=== PATIENT | male | born 1935 | race Caucasian/White ===

== ENCOUNTER 2021-10-07 16:59 | Emergency (ER) | payer MEDICARE ==
[2021-10-07 17:14] VITALS: RESP 18; TEMP 98.8
--- NOTE | 2021-10-07 18:22 | ED ---
General Adult HPI - General Chief complaint: Fall Stated complaint: Fall Time Seen by Provider: 10/07/21 18:05 Source: patient, EMS, RN notes reviewed Mode of arrival: EMS Limitations: altered mental status - History of Present Illness Initial comments: 85-year-old male presents to the emergency department for evaluation status post fall. Patient lives at an extended care facility and was found laying on the ground face first next to his bed. He has no complaints of pain or discomfort. Is unable to recall any events surrounding the fall. His daughter is present at bedside and states the patient is currently at his baseline. Denies any recent sick contacts. No injuries were identified or complained of. Denies fever, chills, headache, blurry vision, neck pain, back pain, chest pain, shortness of breath, difficulty breathing, abdominal pain, nausea, vomiting, diarrhea, dysuria, or hematuria. No gait change or mental status changes according to family. - Related Data Allergies Allergy/AdvReac Type Severity Reaction Status Date / Time shellfish derived [Shellfish] Allergy Unknown Verified 10/07/21 17:14 Review of Systems ROS Statement: Those systems with pertinent positive or pertinent negative responses have been documented in the HPI. ROS Other: All systems not noted in ROS Statement are negative. Past Medical History Past Medical History: Unable to Obtain History of Any Multi-Drug Resistant Organisms: Unobtainable Past Surgical History: Unable to Obtain Past Psychological History: Unable to Obtain Smoking Status: Unknown if ever smoked Past Alcohol Use History: Unable to Obtain Past Drug Use History: Unable to Obtain General Exam Limitations: altered mental status General appearance: alert, in no apparent distress Head exam: Present: atraumatic, normocephalic, normal inspection Eye exam: Present: normal appearance, PERRL, EOMI. Absent: scleral icterus, conjunctival injection, periorbital swelling, periorbital tenderness ENT exam: Present: normal exam, normal oropharynx, mucous membranes moist, TM's normal bilaterally Neck exam: Present: normal inspection, full ROM. Absent: tenderness, meningismus, lymphadenopathy Respiratory exam: Present: normal lung sounds bilaterally. Absent: respiratory distress, wheezes, rales, rhonchi, stridor, chest wall tenderness Cardiovascular Exam: Present: regular rate, normal rhythm, normal heart sounds. Absent: systolic murmur, diastolic murmur, rubs, gallop, clicks GI/Abdominal exam: Present: soft, normal bowel sounds. Absent: distended, tenderness, guarding, rebound, rigid Back exam: Present: normal inspection, full ROM. Absent: CVA tenderness (R), CVA tenderness (L), paraspinal tenderness, vertebral tenderness Neurological exam: Present: alert, other (Oriented to person only which is normal per daughter present at bedside; has some difficulty following commands which is baseline; lacks organization to setence structure and conversation- also normal per daughter.) Psychiatric exam: Present: normal affect, normal mood Skin exam: Present: warm, dry, intact, normal color Course Vital Signs 10/07/21 10/07/21 17:06 18:44 Temperature 98.8 F Pulse Rate 66 67 Respiratory 18 18 Rate Blood Pressure 120/84 113/65 O2 Sat by Pulse 97 97 Oximetry - Reevaluation(s) Reevaluation #1: 10/07/21 18:27 Patient's care discussed with my attending, Dr. Hwang, who is also present at bedside. Patient's daughter again expresses the desire to do no further testing as patient is at his baseline. States the he is signed up for hospice next week and [facility] is [facility]. Medical Decision Making - Medical Decision Making 85-year-old male with a past medical history of dementia presents to the emergency department following a presumed fall. Patient was found in his residence at [facility] laying face down next to the bed. Patient does not take any blood thinning medications. Upon exam, patient is awake and alert; he is shuffling in the room with his daughter present at the bedside. Patient demonstrates no evidence of injury, pain, or trauma. Physical exam findings are negative. Neurological status is baseline for patient as he is normally confused with difficulty following commands. Patient's daughter states he will be made a hospice patient on Sunday. Discussed diagnostic imaging, however patient's daughter feels this is unnecessary as patient's mental status is unchanged and he appears uninjured. This patient's care was discussed with my attending, Dr. Hwang, who is present at bedside to talk with patient and daughter. As a result of shared decision making, patient was discharged home with his daughter who will see him back to [facility]. Follow-up care was discussed in including return parameters. Patient's daughter verbalizes understanding and agrees with this plan. Disposition Clinical Impression: Fall, Chronic confusional state Disposition: HOME SELF-CARE Condition: Stable Instructions (If sedation given, give patient instructions): Dementia (ED), F all Prevention for Older Adults (ED) Additional Instructions: Continue with plan of care as currently engaged in. Follow-up with the PCP for a recheck if needed. Do not hesitate to return to the emergency department with any new, worsening, or concerning symptoms. Is patient prescribed a controlled substance at d/c from ED?: No Referrals: Nonstaff,Physician [Primary Care Provider] - 1-2 days Time of Disposition: 18:30
[2021-10-07 18:44] VITALS: BP 113/65; PULSE 67
== END 2021-10-07 18:52 | disposition home or self-care (01) ==
LOC: EC 16:59
DX: Z04.3 Encounter for examination and observation following other accident (principal); R41.0 Disorientation, unspecified; F03.90 Unspecified dementia, unspecified severity, without behavioral disturbance, psychotic disturbance, mood disturbance, and anxiety
CPT/HCPCS: 99284